=== PATIENT | male | born 1975 | race Caucasian/White ===

== ENCOUNTER 2021-05-08 16:13 | Observation (INO) | payer MEDICAID, OTHER, SELFPAY ==
[~2021-05-08] VITALS: Ht 188 cm; Wt 120.2 kg
[2021-05-08 17:57] VITALS: BP_SYST 153
[2021-05-08] MEDS ORDERED: ASPIRIN 81 MG TAB.CHEW PO ONE (21:45)
[2021-05-08 22:06] LABS: BASOPHILS % (AUTO) 0.2 % (0.0-2.0); EOSINOPHILS % (AUTO) 0.6 % (0.0-4.0); HEMATOCRIT 51.3 % (36-54); HEMOGLOBIN 17.4 g/dL (14.0-18.0); LYMPHOCYTES # (AUTO) 1.9 K/uL (1.0-5.5); LYMPHOCYTES % (AUTO) 29.1 % (20.5-51.5); MEAN CORPUSCULAR HEMOGLOBIN 31 pg (27-31); MEAN CORPUSCULAR HGB CONC 34 % (32-36); MEAN CORPUSCULAR VOLUME 90 fL (79.0-98.0); MONOCYTES # (AUTO) 0.5 K/uL (0.0-1.0); MONOCYTES % (AUTO) 7.3 % (1.7-9.3); NEUTROPHILS # (AUTO) 4.1 K/uL (1.8-7.7); NEUTROPHILS % (AUTO) 62.8 % (40.0-70.0); PLATELET COUNT (AUTO) 225 K/uL (130-430); RED CELL DISTRIBUTION WIDTH 13.9 % (9.0-15.0); WHITE BLOOD COUNT (AUTO) 6.5 K/uL (4.8-10.8)
[2021-05-08 22:12] LABS: INR 1.1 (0.80-1.20); PROTHROMBIN TIME 11.1 SECS (9.5-12.5)
[2021-05-08 22:13] LABS: CALCIUM 9.3 mg/dL (8.4-11.0); CREATININE 1.26 mg/dL (0.55-1.30); POTASSIUM 4.1 mmol/L (3.5-5.1)
[2021-05-08 22:19] LABS: ALBUMIN 3.9 g/dL (3.4-4.8); TOTAL BILIRUBIN 0.3 mg/dL (0.0-1.0)
[2021-05-08] MEDS ORDERED: DEXT15TA PO (23:36)
[2021-05-08] MEDS ORDERED: TEST200V32 IM (23:36)
[2021-05-08] MEDS ORDERED: TRAZ-250 PO (23:36)
[2021-05-09 01:55] VITALS: BP_SYST 136
[2021-05-09 08:45] VITALS: BP_SYST 119
[2021-05-09 12:00] VITALS: BP_SYST 132
[2021-05-09 13:34] VITALS: BP_SYST 132
== END 2021-05-09 14:35 | disposition home or self-care (01) ==
LOC: SED 16:13 → STU 05-09 00:06
PROVIDERS: ADMIT Preventive Medicine Preventive Medicine/Occupational Environmental Medicine; ATTEND Preventive Medicine Preventive Medicine/Occupational Environmental Medicine
DX: R07.89 Other chest pain (principal); Z20.822 Contact with and (suspected) exposure to COVID-19; R00.2 Palpitations; R00.0 Tachycardia, unspecified; G47.00 Insomnia, unspecified; E66.9 Obesity, unspecified; F90.9 Attention-deficit hyperactivity disorder, unspecified type; E29.1 Testicular hypofunction; R73.9 Hyperglycemia, unspecified; G47.33 Obstructive sleep apnea (adult) (pediatric); F17.210 Nicotine dependence, cigarettes, uncomplicated; Z96.652 Presence of left artificial knee joint; Z79.899 Other long term (current) drug therapy
CPT/HCPCS: 36415; 71045; 80053; 83880; 84484; 85025; 85610; 87426; 93005; 99285; G0378